=== PATIENT | male | born 1980 | race Caucasian/White ===

== ENCOUNTER 2017-10-16 13:32 | Emergency (ER) | payer SELFPAY ==
[~2017-10-16] VITALS: Ht 172.7 cm; Wt 105.7 kg
[2017-10-16 13:46] VITALS: BP 141/94; Ht 172.7 cm; Wt 105.7 kg
== END 2017-10-16 15:17 | disposition home or self-care (01) ==
LOC: ED 13:32
DX: S01.01XD Laceration without foreign body of scalp, subsequent encounter (principal); X58.XXXD Exposure to other specified factors, subsequent encounter

== ENCOUNTER 2017-12-18 11:22 | Emergency (ER) | payer MEDICAID ==
[~2017-12-18] VITALS: Ht 172.7 cm; Wt 113.4 kg
[2017-12-18 11:27] VITALS: BP 138/71; Ht 172.7 cm; Wt 113.4 kg
== END 2017-12-18 12:45 | disposition home or self-care (01) ==
LOC: ED 11:22
DX: S01.01XD Laceration without foreign body of scalp, subsequent encounter (principal); X58.XXXD Exposure to other specified factors, subsequent encounter